=== PATIENT | female | born 1970 | race Caucasian/White ===

== ENCOUNTER 2020-05-24 15:11 | Emergency (ER) | payer OTHER ==
[2020-05-24] MEDS ORDERED: NORCO 5-325 TA1 EACH PO ×2 (16:21→16:41)
== END 2020-05-24 17:44 | disposition home or self-care (01) ==
LOC: FER 15:11
DX: M51.16 Intervertebral disc disorders with radiculopathy, lumbar region (principal); F17.200 Nicotine dependence, unspecified, uncomplicated; Z88.0 Allergy status to penicillin
CPT/HCPCS: 99283